=== PATIENT | male | born 1990 | race Caucasian/White ===

== ENCOUNTER 2016-11-17 04:23 | Emergency (ER) | payer OTHER ==
[2016-11-17 04:35] VITALS: TEMP 97.7
[2016-11-17 04:38] LABS: % IMMATURE GRANULYOCYTES 0.5 % (0.0-1.1); ABSOLUTE IMMATURE GRANULOCYTES 0.04 10^3/uL (0.00-0.10); ADD DIFF? NO; ADD MORPH? NO; ADD SCAN? NO; ATYPICAL LYMPHOCYTE FLAG 30 (0-99); FRAGMENT RBC FLAG 0 (0-99); HEMATOCRIT 47.2 % (40.0-51.0); HEMOGLOBIN 16.3 g/dL (13.7-17.5); LEFT SHIFT FLG 0 (0-99); LIPEMIA HEMOLYSIS FLAG 90 (0-99); MEAN CELL HEMOGLOBIN 29.3 pg (27.9-34.1); MEAN CELL HEMOGLOBIN CONCENTR. 34.5 g/dL (32.4-36.7); MEAN CELL VOLUME 84.7 fL (81.5-99.8); MEAN PLATELET VOLUME 10.7 fL (8.7-11.7); PLATELET CLUMPS FLAG 0 (0-99); PLATELET COUNT 303 10^3/uL (150-400); RED BLOOD CELL COUNT 5.57 10^6/uL (4.40-6.38); RED CELL DISTRIBUTION WIDTH 11.9 % (11.5-15.2)
[2016-11-17] MEDS ORDERED: ONDANSETRON 4 MG/2 ML VIAL ONE (04:39)
[2016-11-17] MEDS ORDERED: ONDANSETRON 4 MG/2 ML VIAL IVP ONE (04:40)
--- NOTE | 2016-11-17 04:47 | CPEKG ---
Heart Rate: 94 RR Interval: 638 P-R Interval: 164 QRSD Interval: 102 QT Interval: 360 QTC Interval: 451 P [place]: 74 QRS [place]: 6 T Wave [place]: 33 EKG Severity - NORMAL ECG - EKG Impression: SINUS RHYTHM Electronically Signed By: Sherry Alicea 17-Nov-2016 07:01:11
[2016-11-17 04:50] LABS: ANION GAP 18 mEq/L (8-16); CALCIUM 9.2 mg/dL (8.5-10.4); CARBON DIOXIDE 24 mEq/l (22-31); CHLORIDE 105 mEq/L (97-110); ETHANOL SERUM 197 mg/dL (0-10); GLOMERULAR FILTRATION RATE > 60; GLUCOSE 107 mg/dL (70-100); POTASSIUM 3.6 mEq/L (3.5-5.2); SALICYLATE < 1.0 mg/dL (2.0-20.0); SODIUM 147 mEq/L (134-144)
--- NOTE | 2016-11-17 06:48 | EDPHY ---
H & P Stated Complaint: ADMITED TO [facility] TO FRIEND, ETOH, UNRESPONSIVE Time Seen by Provider: 11/17/16 04:28 HPI/ROS: CHIEF COMPLAINT: Patient has none HISTORY OF PRESENT ILLNESS: This is a 26-year-old male brought to the emergency department by his friend who became concerned about him when he Passed out and was difficult to arouse. Reportedly the patient came to his friend's house in the early hours of the morning after drinking alcohol, taking Xanax that he obtained on the street, and snorting cocaine. The patient initially tells me that he did this in order to constitution party and get high. REVIEW OF SYSTEMS: A ten point review of systems was performed and is negative with the exception of the items mentioned in the HPI. 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 - Physical Exam Exam: General Appearance: Somnolent but arousable to vigorous stimulation. Head: Normocephalic atraumatic. Eyes: Pupils equal and round, no conjunctival injection, no discharge. Anicteric. ENT, Mouth: Mucous membranes are moist, no oropharyngeal erythema or edema. Neck: No lymphadenopathy, supple. Respiratory: Lungs are clear to auscultation; no wheezes, rales, or rhonchi. Cardiovascular: Regular rate and rhythm; no murmur, rub, or gallop. Gastrointestinal: Abdomen is soft and nontender, no masses or organomegaly, bowel sounds normal. Skin: Warm and dry, no rashes on exposed skin, normal color. Back: Nontender to palpation over the thoracolumbar spine. No CVAT. Extremities: No lower extremity edema, no calf tenderness or swelling. Neurological: Alert and oriented. Moving all four extremities easily and equally. CAROL. EOMI. No nystagmus. Facial expressions symmetric. Tongue midline. Psychiatric: No agitation. Constitutional: Initial Vital Signs Temperature (C) 36.5 C 11/17/16 04:25 Heart Rate 86 11/17/16 04:25 Respiratory Rate 16 11/17/16 04:25 Blood Pressure 137/83 H 11/17/16 04:25 O2 Sat (%) 87 L 11/17/16 04:25 O2 Delivery Mode Room Air O2 (L/minute) 2 Allergies/Adverse Reactions: No Known Allergies Allergy (Verified 11/17/16 04:34) Home Medications: Medication Instructions Recorded Hydrocodone/APAP 325 [[place] 1 - 2 each PO Q6 PRN #20 tab 05/24/16 5325] Medical Decision Making - Diagnostics EKG Interpretation: 12 lead EKG is interpreted in Trace master View by emergency department physician. It shows sinus rhythm with normal intervals and no acute ischemic changes. ED Course/Re-evaluation: Somnolent on arrival but arousable to vigorous stimulation. Blood alcohol level is 197. His urine drug screen is positive for cocaine and marijuana. No benzodiazepines show up in his urine although he reports taking Xanax. He has remained sleepy but easily arousable during his stay in the emergency department. At his request, I spoke with his mother on the telephone. She is concerned about his mental health. She reports an episode in July when he was home in [place] and became quite intoxicated. It is her opinion that he is self medicating. I spoke with him at 6:45 a.m.. I asked him directly if he is suicidal and he stated no. He does say that he thinks he is addicted to multiple substances. He is requesting help for substance abuse. We spoke briefly about [facility]. He is not yet ready for discharge but can likely be discharged to the [facility]. Differential Diagnosis: I considered a differential diagnosis that includes but is not limited to polysubstance abuse, self medication, depression, and suicidality. - Data Points Laboratory Results: Laboratory Results 11/17/16 04:30 11/17/16 04:30 Medications Given: Discontinued Medications Ondansetron HCl (Zofran) 4 mg IVP EDNOW ONE Stop: 11/17/16 04:41 Last Admin: 11/17/16 04:40 Dose: 4 mg Departure - Departure Disposition: Home, Routine, Self-Care Clinical Impression: Polysubstance abuse Condition: Good Instructions: Polysubstance Abuse (ED) Additional Instructions: I am providing referrals for primary care--[facility] and Dr. Heriberto Galvan. I am also providing information about the [facility], AA, and NA. Referrals: Selina Dixon MD [Medical Doctor] - As per Instructions [facility],. [Clinic] - As per Instructions AA Hotline [Outside] - As per Instructions Narcotics Anonymous [Outside] - As per Instructions [facility] Hours [Outside] - As per Instructions
[2016-11-17 08:19] VITALS: RESP 16; O2SAT 98
[2016-11-17 09:24] VITALS: BP 130/75; PULSE 65
== END 2016-11-17 09:28 | disposition home or self-care (01) ==
DX: F19.10 Other psychoactive substance abuse, uncomplicated (principal); J45.909 Unspecified asthma, uncomplicated; F17.200 Nicotine dependence, unspecified, uncomplicated
CPT/HCPCS: 80305; 96374; G0480; J2405